=== PATIENT | male | born 1950 ===

== ENCOUNTER 2023-01-15 11:00 | Emergency (ER) | payer MEDICARE ==
[2023-01-15] MEDS ORDERED: HYDROmorphone 0.5 MG/0.5 ML Syringe IVPUSH ONE (11:15)
[2023-01-15] MEDS ORDERED: Sodium Chloride 0.9% 10 ML Syringe FLUSH PRN (11:16)
[2023-01-15] MEDS ORDERED: Ondansetron 4 MG/2 ML SDV IVPUSH ONE (11:45)
[2023-01-15] MEDS ORDERED: HYDROmorphone 1 MG/ML Syringe IM ONE (13:18)
[2023-01-15] MEDS ORDERED: Diphtheria,Pertussis(Acell),Tetanus Vaccine 0.5 ML Syringe IM ONE (13:45)
[2023-01-15] MEDS ORDERED: Sodium Chloride 0.9% 1,000 ML IV SCH (14:45)
[2023-01-15] MEDS ORDERED: Iopamidol 755 Mg/ML 100 ML Bottle IV ONE (15:25)
[2023-01-15] MEDS ORDERED: Sodium Chloride 0.9% 75 ML IV ONE (15:25)
[2023-01-15] MEDS ORDERED: Sodium Chloride 0.9% 10 ML Syringe FLUSH ONE (15:25)
[2023-01-15] MEDS ORDERED: Lidocaine 1% 5 ML VIAL INJECT ONE (15:59)
[2023-01-15] MEDS ORDERED: Bacitracin Oint 1 GM U/D Packet TOP ONE (15:59)
== END 2023-01-15 17:30 | disposition home or self-care (01) ==
LOC: JP.ED 11:00
DX: S41.112A Laceration without foreign body of left upper arm, initial encounter (principal); S50.11XA Contusion of right forearm, initial encounter; S40.021A Contusion of right upper arm, initial encounter; Z23 Encounter for immunization; W18.30XA Fall on same level, unspecified, initial encounter; Y92.009 Unspecified place in unspecified non-institutional (private) residence as the place of occurrence of the external cause
CPT/HCPCS: 12002; 73090; 73206; 90471; 90715; 96372; 96374; 96375; 99284; J1170; J2405; J3490; J7030; Q9967